=== PATIENT | female | born 1975 | race Caucasian/White ===

== ENCOUNTER → 2016-12-07 | Outpatient (CLI) | payer OTHER | LOC: MMPC 09:00 | PROVIDERS: ATTEND Family Medicine | DX: F32.9 Major depressive disorder, single episode, unspecified (principal); G35 Multiple sclerosis; S90.211A Contusion of right great toe with damage to nail, initial encounter | CPT/HCPCS: 99213; G0463 ==

== ENCOUNTER → 2016-12-26 | Outpatient (CLI) | payer OTHER | LOC: MOB LAB 16:45 | PROVIDERS: ATTEND Nurse Practitioner Family | DX: N89.8 Other specified noninflammatory disorders of vagina (principal) | CPT/HCPCS: 87480; 87510; 87660 ==

== ENCOUNTER → 2017-03-09 | Outpatient (CLI) | payer OTHER | LOC: MMPC 09:00 | PROVIDERS: ATTEND Family Medicine | DX: B37.3 Candidiasis of vulva and vagina (principal); M79.641 Pain in right hand | CPT/HCPCS: 99213; G0463 ==

== ENCOUNTER → 2017-04-04 | Outpatient (CLI) | payer OTHER | LOC: MOB LAB 11:49 | PROVIDERS: ATTEND Nurse Practitioner Family | DX: R10.2 Pelvic and perineal pain (principal) | CPT/HCPCS: 87480; 87491; 87510; 87591; 87660 ==

== ENCOUNTER 2017-05-15 21:10 | Emergency (ER) | payer OTHER ==
[2017-05-15] MEDS ORDERED: Sodium Chloride 0.9% 1,000 ML PRIMARY IV ONE (21:20)
[2017-05-15] MEDS ORDERED: MORPHINE SULFATE 2 MG/1 ML IVP ONE (21:20)
[2017-05-15] MEDS ORDERED: ONDANSETRON 4 MG/2 ML VIAL IVP ONE (21:20)
--- NOTE | 2017-05-15 21:26 | PDOC ---
Abdomen/Flank HPI - General Chief Complaint: Abdomen Pain Stated Complaint: Right lower quadrant abdominal pain. Date Seen by Provider: 05/15/17 Time Seen by Provider: 21:23 Source: POSITIVE: Patient, EMS Exam Limitations: POSITIVE: No limitations Nurse's Notes Reviewed & Considered: Yes EMS Report Reviewed & Considered: Verbal - History of Present Illness Initial Comments: Patient is brought in via EMS complaining of right lower quadrant abdominal pain. Patient with a three-week history of increasing right lower quadrant abdominal pain denies any fever chills or sweats, no nausea vomiting or diarrhea , no hematuria or dysuria, she does have complaints of vague bilateral flank pain and her description of pain vacillates between left and right being the source of her greatest complaint. She denies any headache, no chest pain, no shortness of breath, no cough, no rashes. Body Location Affected: REPORTS: Abdomen Timing: REPORTS: Unknown Duration: Unknown Severity: Moderate Quality: REPORTS: "Pain", Sharpness Abdominal Pain Onset Location: REPORTS: RLQ Abdominal Pain Radiation: REPORTS: LLQ Context: REPORTS: None Modifying Factors: improves with: Nothing Associated Symptoms: REPORTS: Chills Similar Symptoms Previously: No Recent Care Received: REPORTS: Denies Any Prior Injuries Related to Current Complaint?: No - Patient Home Medications Home Medications: Home Medications Vitamin D3 5,000 Unit Tablet 1 each PO QD 11/07/12 Cyclobenzaprine HCl [Flexeril Tab] 10 mg PO DAILY 12/17/15 Acyclovir 1 tab PO BID #10 tab 12/26/16 - Patient Allergies Allergies/Adverse Reactions: Allergies Allergy/AdvReac Type Severity Reaction Status Date / Time sulfamethoxazole Allergy Severe SHORTNESS Verified 05/15/17 22:07 [From Bactrim] OF BREATH latex Allergy Unknown NOT Verified 05/15/17 22:07 APPLICABLE methylprednisolone Allergy Unknown NOT Verified 05/15/17 22:07 APPLICABLE triamcinolone acetonide Allergy Unknown NOT Verified 05/15/17 22:07 [From Kenalog] APPLICABLE trimethoprim [From Bactrim] Allergy Unknown NOT Verified 05/15/17 22:07 APPLICABLE gabapentin [Gabapentin] AdvReac Severe DIZZINESS Verified 05/15/17 22:07 lorazepam [From Ativan] AdvReac Severe NOT Verified 05/15/17 22:07 APPLICABLE tramadol [Tramadol] AdvReac Severe NOT Verified 05/15/17 22:07 APPLICABLE albumin human AdvReac Intermediate MADE ME Verified 05/15/17 22:07 *RETIRED-05/30/12 SUICIDAL [From Rebif] interferon beta-1a AdvReac Intermediate MADE ME Verified 05/15/17 22:07 [From Rebif] SUICIDAL senoform Allergy Unknown ANAPHLAXIS Uncoded 08/21/16 19:30 Past Medical History - heen HEENT History: Other (please comment) Additional HEENT History: Hx of optic neuritis. Cardiovascular History: Arrhythmia Respiratory History: Denies History Gastrointestinal History: Denies History Additional Gastrointestinal History: constipation Genitourinary History: Denies History Endocrine History: Denies History Musculoskeletal History: Other (please comment) Prosthesis or Implant: No Additional Musculoskeletal History: Multiple Sclerosis: pt. is non-compliant with medications. Neurological History: Migraines, Multiple Sclerosis, Seizures Additional Neurological History: LESIONS ON SPINE AND BRAIN (OCCIPITAL/TEMPORAL) Blood Disorders: Anemia Psychiatric History: Anxiety Disorders, Depression History of Sexually Transmitted Diseases: No Cancer History: Denies History History of MDRO: No History of Other Communicable Diseases: Yes (HERPES) Alcohol Use: Occasionally Substance Use Type: None Previous Surgical History: No Significant Family History: No pertinent family hx ROS - Limitations ROS Limitations: No Limitations Constitution: REPORTS: Chills Cardiovascular: REPORTS: Denies Cardiac Symptoms Respiratory: REPORTS: Denies Resp Symptoms Neurological: REPORTS: Denies Neuro Symptoms Gastrointestinal: REPORTS: Abdominal Pain, Nausea, Diarrhea Endocrine: REPORTS: Denies Symptoms Musculoskeletal: REPORTS: Denies MS Symptoms Genitourinary: REPORTS: Denies Symptoms Eyes: REPORTS: Denies Symptoms ENT: REPORTS: Denies Symptoms Skin: REPORTS: Denies Skin Symptoms Lympathic: REPORTS: Denies Lympathic Symptoms Immunologic: POSITIVE: Denies Symptoms Psychiatric: POSITIVE: Denies Psych Symptoms Abdominal/Flank Pain PE - General Appearance General Appearance: POSITIVE: Alert, Cooperative, No Acute Distress, No Evidence of Trauma - HEENT HEENT: POSITIVE: Head Inspection Nml, Eyes Inspection Nml, Ears Inspection Nml, Nose Inspection Nml, Oral/Dental Inspect. Nml, Pharynx Inspect. Nml, PERRL, EOMI - Neck Neck: POSITIVE: Normal Inspection, No Apparent Injury - Respiratory Respiratory: POSITIVE: No Respiratory Distress, Breath Sounds Normal, Chest Non- Tender - Cardiovascular Cardiovascular: POSITIVE: Regular Rate and Rhythm, Heart Sounds Normal, Strong Pulses Peripheral Pulses: Radial (R): 4+ - Chest Chest: POSITIVE: Non Tender - Abdomen Abdomen: Soft: (All Quadrants), Normal Bowel Sounds: (All Quadrants), Denies Tenderness: (LUQ), (RUQ), No Splenomegaly: (All Quadrants), No Hepatomegaly: ( All Quadrants), No Guarding: (All Quadrants), No Rebound: (All Quadrants), No Palpable Pulse: (All Quadrants), No Palpabale Mass: (All Quadrants), No Distention: (All Quadrants), No Rigidity: (All Quadrants), Tenderness Noted: ( LLQ), (RLQ) - Back Back: POSITIVE: Normal Inspection - Skin Skin: POSITIVE: Intact, Normal For Race, Warm, Dry, No Rash - Extremities Extremity: Non-Tender: (All Extremities), Normal ROM: (All Extremities), Normal Inspection: (All Extremities), Pelvis Stable: (All Extremities) Abdomen Progress - Results Reviewed by me Xrays/CTs/US Reviewed by me: Yes Discussed with Radiologist: Yes Lab Results Reviewed: Yes Lab Results:: Laboratory Results 05/15/17 05/15/17 Range/Units 21:25 21:49 WBC 9.76 (4.8-10.8) 10^3/uL RBC 4.70 (4.20-5.40) 10^6/uL Hgb 15.9 (12.0-16.0) g/dL Hct 44.9 (37.0-47.0) % MCV 95.5 (81-99) FL MCH 33.8 H (27-31) PG MCHC 35.4 (33-37) g/dL RDW Std Deviation 43.7 (39-50) fL RDW Coeff of [place] 12.9 (11.5-14.5) % Plt Count 202 (140-350) 10*3/uL MPV 11.0 (7.4-12.2) FL Immature Gran % (Auto) 0.1 (0-5) % Neut % (Auto) 70.5 (50-80) % Lymph % (Auto) 18.3 (10-50) % [place] % (Auto) 9.5 (5-15) % Eos % (Auto) 0.2 (0-8) % Baso % (Auto) 1.4 H (0-1) % Immature Gran # (Auto) 0.01 10*3/UL Neut # (Auto) 6.87 10*3/UL Lymph # (Auto) 1.79 10*3/uL [place] # (Auto) 0.93 H (0.3-0.8) 10*3/UL Eos # (Auto) 0.02 10*3/UL Baso # (Auto) 0.14 10*3/UL WBC Morphology Comment Normal morphology (NORM) Plt Morphology Comment Normal morphology (NORM) RBC Morph Comment Normal morphology (NORM) Sodium 139 (135-145) meq/L Potassium 3.7 L (3.8-5.2) meq/L Chloride 104 (98-112) meq/L Carbon Dioxide 24 (23-33) meq/L Anion Gap 11 (5-20) BUN 11 (7-22) mg/dL Creatinine 0.8 (0.50-1.20) mg/dL Estimated GFR > 60 (>60 ml/min/1.73m(2)) BUN/Creatinine Ratio 13.75 (6-20) Glucose 99 (78-110) mg/dL Calculated Osmolality 286.0 (267-292) mOsm/kg Calcium 9.9 (8.7-10.7) mg/dL Magnesium 2.2 (1.6-2.4) mg/dL Total Bilirubin 0.5 (0.3-1.2) mg/dL AST 17 (8-39) IU/L ALT 27 (9-52) IU/L Alkaline Phosphatase 78 (38-126) IU/L C-Reactive Protein < 0.5 (0.0-0.9) mg/dL Total Protein 7.4 (6.1-8.0) g/dL Albumin 4.5 (3.5-4.8) g/dL Globulin 2.9 (2.50-4.10) g/dL Albumin/Globulin Ratio 1.50 (1.3-2.0) mg/g TSH 0.514 (0.2700-4.2000) uIU/mL Serum HCG, Qual Negative Ur Collection Type Clean catch urine Urine Color Yellow Urine Clarity Slightly cloudy (CLEAR) Urine pH 5.5 (5.0-8.5) Ur Specific [place] 1.020 (1.005-1.030) Urine Protein Negative (NEG) mg/dl Urine Glucose (UA) Negative (NEG) mg/dL Urine Ketones 15 (NEG) Urine Occult Blood Negative (NEG) Urine Nitrate Negative (NEG) Urine Bilirubin Small (NEG) Urine Urobilinogen 1.0 (0.2) EU/dL Ur Leukocyte Esterase Negative (NEG) Ur Culture Indicated? Culture not set - Patient's Progress Pain Medication Addressed: POSITIVE: Yes Re-examine Time: 01:39 Status: POSITIVE: Improved MDM / ED Course: Patient was evaluated, an IV started, blood drawn and sent to the lab for studies, ultrasound obtained. Findings: Ultrasound shows a right ovarian follicular cyst present. CBC, CMP, urinalysis are all negative. Assessment: Abdominal pain most likely secondary to right ovarian cyst. Plan: Discharge home, follow-up with her primary care physician. [place] prescribed. - Consult Counseled: POSITIVE: Patient, RE: Lab Results, RE: Radiology Results, RE: DX, RE : Need for F/U Patient Care Time - Estimated PCT Patient Care Time (In Minutes): 45 Vital Signs - VS Reviewed Vital Signs Reviewed: Yes Discharge Clinical Impression: Abdominal pain Discharge Disposition: Discharged to Home Condition: Fair Patient Instructions Given at Discharge: Ovarian Cyst (ED), Acute Abdominal Pain (ED)
[2017-05-15 21:27] LABS: BASOPHILS # (AUTO) 0.14 10*3/UL; BASOPHILS % (AUTO) 1.4 % (0-1); EOSINOPHILS # (AUTO) 0.02 10*3/UL; EOSINOPHILS % (AUTO) 0.2 % (0-8); HEMATOCRIT 44.9 % (37.0-47.0); HEMOGLOBIN 15.9 g/dL (12.0-16.0); LYMPHOCYTES # (AUTO) 1.79 10*3/uL; MEAN CORPUSCULAR HEMOGLOBIN 33.8 PG (27-31); MEAN CORPUSCULAR HGB CONC 35.4 g/dL (33-37); MEAN CORPUSCULAR VOLUME 95.5 FL (81-99); MONOCYTES # (AUTO) 0.93 10*3/UL (0.3-0.8); MONOCYTES % (AUTO) 9.5 % (5-15); NEUTROPHILS # (AUTO) 6.87 10*3/UL; NEUTROPHILS % (AUTO) 70.5 % (50-80)
[2017-05-15 21:28] LABS: PLATELET MORPHOLOGY COMMENT NORMAL MORPHOLOGY (NORM); RBC MORPHOLOGY COMMENT NORMAL MORPHOLOGY (NORM); WBC MORPHOLOGY COMMENT NORMAL MORPHOLOGY (NORM)
[2017-05-15 21:41] LABS: BLOOD UREA NITROGEN 11 mg/dL (7-22); BUN/CREATININE RATIO 13.75 (6-20); CALCIUM 9.9 mg/dL (8.7-10.7); EST GLOMERULAR FILTRATION > 60 (>60 ml/min/1.73m(2)); MAGNESIUM 2.2 mg/dL (1.6-2.4); SERUM ALBUMIN 4.5 g/dL (3.5-4.8)
[2017-05-15 21:43] LABS: C-REACTIVE PROTEIN < 0.5 mg/dL (0.0-0.9)
[2017-05-15 21:51] LABS: BILIRUBIN,URINE SMALL (NEG); CLARITY,URINE Slightly Cloudy (CLEAR); COLOR,URINE YELLOW; GLUCOSE, URINE (UA) NEGATIVE (NEG); NITRATE,URINE NEGATIVE (NEG); OCCULT BLOOD,URINE NEGATIVE (NEG); PH,URINE 5.5 (5.0-8.5); PROTEIN,URINE NEGATIVE (NEG); URINE SAMPLE TYPE CLEAN CATCH URINE
--- NOTE | 2017-05-16 00:53 | DI ---
HISTORY: Right lower quadrant pain. COMPARISON: None available. TECHNIQUE: Multiple mcintyre-scale and color Doppler images of the pelvis were obtained during a real ti me examination. FINDINGS: The uterus is retroflexed and measures 11.0 x 5.5 x 5.4 cm with normal morphology. The en dometrial complex demonstrates normal morphology and measures 1.1 cm in thickness. The right ovary m easures 5.7 x 2.7 x 2.5 cm with normal vascularity and contains a functional follicle measuring 3.1 x 2.0 x 1.4 cm. The left ovary measures 3.1 x 1.4 x 2.0 chest x-ray cm with normal morphology and vas cularity. No adnexal mass or free cul-de-sac fluid is present. IMPRESSION: 1. The right ovary is mildly enlarged and contains a functional follicle. Normal vascular flow is pre sent. Repeat imaging is recommended in 6 weeks in order to ensure resolution, or sooner as clinically indicated. 2. Normal sonographic morphology of the uterus and left ovary. NOTE: The interpreting Radiologist was not present at the time of ultrasound interrogation.
[2017-05-16] MEDS ORDERED: HYDROcodone-APAP 5 MG -325 MG TABLET PO SCH (01:45)
[2017-05-16 03:43] VITALS: RESP 18; TEMP 97.6
== END 2017-05-16 02:04 | disposition home or self-care (01) ==
LOC: ER 21:10
DX: R10.31 Right lower quadrant pain (principal)
CPT/HCPCS: 76856; 80053; 81003; 83735; 84443; 84703; 85025; 86140; 96361; 96374; 99283 ×2; J2405; J2270; J7030